=== PATIENT | male | born 1965 | race Caucasian/White ===

== ENCOUNTER → 2016-05-08 | Outpatient (CLI) | payer BC ==
[2016-05-08 14:06] LABS: HEMOGLOBIN 14.5 gm/dl (14.0-17.5); RED BLOOD COUNT 5.37 M/UL (4.20-5.50); WHITE BLOOD COUNT 8.5 K/UL (4.5-11.0)
== END ==
LOC: LAB 13:44
PROVIDERS: Nurse Practitioner
DX: T63.301A Toxic effect of unspecified spider venom, accidental (unintentional), initial encounter (principal)
CPT/HCPCS: 36415; 84550; 85027

== ENCOUNTER 2016-05-11 10:08 | Emergency (ER) | payer BC ==
[2016-05-11 12:08] LABS: HEMOGLOBIN 14.4 gm/dl (14.0-17.5); RED BLOOD COUNT 5.33 M/UL (4.20-5.50); WHITE BLOOD COUNT 6.5 K/UL (4.5-11.0)
[2016-05-11 12:55] LABS: BUN/CREATININE RATIO 8 (0-10)
== END 2016-05-11 13:49 | disposition home or self-care (01) ==
LOC: ER1 10:08
PROVIDERS: Physician Assistant Medical
DX: L03.116 Cellulitis of left lower limb (principal); I10 Essential (primary) hypertension; Z79.899 Other long term (current) drug therapy
CPT/HCPCS: 36415; 80053; 85025; 86140; 86618; 99283

== ENCOUNTER 2016-05-28 00:31 | Emergency (ER) | payer BC ==
[2016-05-28 02:18] LABS: HEMOGLOBIN 12.4 gm/dl (14.0-17.5); RED BLOOD COUNT 4.71 M/UL (4.20-5.50); WHITE BLOOD COUNT 7.9 K/UL (4.5-11.0)
[2016-05-28 02:39] LABS: BUN/CREATININE RATIO 16 (0-10)
== END 2016-05-28 04:15 | disposition home or self-care (01) ==
LOC: ER1 00:31
PROVIDERS: Emergency Medicine
DX: R04.2 Hemoptysis (principal); Z91.040 Latex allergy status
CPT/HCPCS: 36415; 71020; 80053; 83690; 85025; 85610; 85730; 93005; 99283

== ENCOUNTER → 2020-02-16 | Outpatient (CLI) | payer BC ==
[~2020-02-16] MED LIST: CRESTOR10 MG PO; CVS STOOL SOFT PO; KRILL OIL 1,001 EAC1 PO; METOPROLOL SUCC25 MG PO; PEPCID40 MG PO; PREVACID30 MG PO; ZANAFLEX4 MG PO
== END ==
LOC: KOH-I 15:41
DX: D86.9 Sarcoidosis, unspecified (principal)
CPT/HCPCS: 71046

== ENCOUNTER → 2021-08-22 | Outpatient (CLI) | payer BC | LOC: KOH-I 11:25 | DX: M79.632 Pain in left forearm (principal) | CPT/HCPCS: 73090 ==